=== PATIENT | male | born 1960 | race Caucasian/White ===

== ENCOUNTER → 2016-08-27 | Outpatient (CLI) | payer OTHER ==
[~2016-08-27] MED LIST: CYMB30CA PO; EXCETAB2 PO; GLUCTAB6; MOTR200T PO; ROSU5 PO; SOMA350T PO; TAB-TAB PO; TRAM50TA PO
[2016-08-27 07:43] LABS: ALKALINE PHOSPHATASE 78 U/L (45-117); ALT (GPT) 27 U/L (12-78); ANION GAP 6 MEQ/L (5-15); AST (GOT) 21 U/L (15-37); BICARBONATE 28.1 MEQ/L (21.0-32.0); BLOOD UREA NITROGEN 13 MG/DL (7-18); CHLORIDE 104 MEQ/L (98-107); GLOMERULAR FILTRATION RATE 81 ML/MIN (>89); GLUCOSE,FASTING 99 MG/DL (74-99); HDL CHOLESTEROL 41.6 MG/DL (40.0-60.0); LDL CHOLESTEROL 103 MG/DL (0-99); POTASSIUM 4.3 MEQ/L (3.5-5.1); SODIUM (NA) 138 MEQ/L (136-145); TOTAL BILIRUBIN ADULT 0.6 MG/DL (0.2-1.0)
== END ==
LOC: CLAB 06:52
PROVIDERS: ATTEND Family Medicine
DX: E78.5 Hyperlipidemia, unspecified (principal); Z79.899 Other long term (current) drug therapy
CPT/HCPCS: 36415; 80053; 80061

== ENCOUNTER → 2016-09-27 | Outpatient (CLI) | payer OTHER ==
[2016-09-27 09:33] LABS: AUTOMATED NEUTROPHIL # 3.4 TH/MM3 (1.8-7.7); BASOPHIL # 0.1 TH/MM3 (0-0.2); BASOPHIL % 0.8 % (0.0-2.0); EOSINOPHIL # 0.3 TH/MM3 (0-0.4); EOSINOPHIL % 4.3 % (0.0-4.0); HEMO FLAGS DIFF FINAL; LYMPH % 34.8 % (9.0-44.0); LYMPHOCYTE # 2.4 TH/MM3 (1.0-4.8); MEAN CELL VOLUME 87.5 FL (80.0-100.0); MEAN CORPUSCULAR HEMOGLOBIN 29.5 PG (27.0-34.0); MEAN CORPUSCULAR HGB CONC 33.7 % (32.0-36.0); MONO % 9.6 % (0.0-8.0); NEUT % 50.5 % (16.0-70.0); PLATELET COUNT 258 TH/MM3 (150-450); RED BLOOD COUNT 5.03 MIL/MM3 (4.50-5.90); RED CELL DISTRIBUTION WIDTH 13.5 % (11.6-17.2); WHITE BLOOD COUNT 6.8 TH/MM3 (4.0-11.0)
== END ==
LOC: CLAB 09:05
PROVIDERS: ATTEND Nurse Practitioner Family
DX: K92.1 Melena (principal)
CPT/HCPCS: 36415; 85025

== ENCOUNTER → 2016-11-22 | Day surgery (SDC) | payer OTHER ==
[~2016-11-22] MED LIST changes: +LACTATED RINGER'S 1000 ML INJ 1,000 ML ONE; +PROPOFOL 500 MG/50 ML BTL IV ONE
--- NOTE | 2016-11-22 14:07 | GIPROC ---
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 He takes excedrin and ibuprofen. PROCEDURE PERFORMED: EGD w/ biopsy MEDICATIONS: Per Anesthesia. TOPICAL ANESTHETIC: None CONSENT: The patient understands the risks and benefits of the procedure and understands that these risks include, but are not limited to: sedation, allergic reaction, infection, perforation and/or bleeding. Alternative means of evaluation and treatment include, among others: physical exam, x-rays, and/or surgical intervention. The patient elects to proceed with this endoscopic procedure. medical equipment was checked for proper function. Hand hygiene and appropriate measures for infection prevention was taken. After the risks, benefits and alternatives of the procedure were thoroughly explained, Informed consent was verified, confirmed and timeout was successfully executed by the treatment team. The patient was anesthetized with topical anesthesia and the EC-3490Li ([id number]) endoscope was introduced through the mouth and advanced to the 2nd portion of the duodenum . Retroflexion was performed The gastroscope was then slowly withdrawn and removed. A proximal esophageal inet patch was noted.. The Z-line appeared normal at the GE junction at 46cm from the incisors. Antral erosions were noted; biopsies were taken to check for H.pylori infection. The pylorus and duodenal bulb appeared normal. Multiple shallow ulcers were noted in the duodenal sweep; biopsies were taken. ADVERSE EVENTS: There were no complications. IMPRESSIONS: Antral erosions; duodenal ulcers RECOMMENDATIONS: Resume prior diet/medications. Begin ranitidine. 150mg, by mouth, twice/day. PATIENT CONDITION: stable DISPOSITION: Home REPEAT EXAM: Mao Mccracken MD eSigned: Mao Mccracken MD 11/22/2016 2:06 PM cc: Peg Glaser M.D. PATIENT NAME: Ab Nugent MR#: [id number]
--- NOTE | 2016-11-22 14:13 | GIPROC ---
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 PROCEDURE PERFORMED: Colonoscopy with biopsy MEDICATIONS: Per Anesthesia. PREP QUALITY: excellent ESTIMATED BLOOD LOSS: None CONSENT: The patient understands the risks and benefits of the procedure and understands that these risks include, but are not limited to: sedation, allergic reaction, infection, perforation and/or bleeding. Alternative means of evaluation and treatment include, among others: physical exam, x-rays, and/or surgical intervention. The patient elects to proceed with this endoscopic procedure. medical equipment was checked for proper function. Hand hygiene and appropriate measures for infection prevention was taken. After the risks, benefits and alternatives of the procedure were thoroughly explained, Informed consent was verified, confirmed and timeout was successfully executed by the treatment team. A digital exam was perfommed; no lesions were noted; the prostate was not enlarged. The EC-[id number] ([id number]) endoscope was introduced through the anus and advanced to the cecum, which was identified by both the appendix and ileocecal valve. The instrument was then slowly withdrawn as the colon was fully examined. Two 2mm proximal transverse colon polyps were removed with cold biopsy forceps. Mild sigmoid diverticulosis was noted. Retroflexion was performed The scope was then completely withdrawn from the patient and the procedure terminated. ADVERSE EVENTS: There were no complications. IMPRESSIONS: Two transverse colon polyps; removed with biopsy forceps. Mild sigmoid diverticulosis. RECOMMENDATIONS: 1. Await biopsy results. Biopsy results will not be ready for 7-10 days. If you don't hear from us in two weeks, call our office for results. 2. High fiber diet RECALL: Repeat colonoscopy in 3, 5 or 10 years, depending on polyp histology. Mao Mccracken MD eSigned: Mao Mccracken MD 11/22/2016 2:12 PM cc: Peg Glaser M.D.
== END | disposition home or self-care (01) ==
LOC: ESDC 11:52
DX: K92.1 Melena (principal); D12.3 Benign neoplasm of transverse colon; K57.90 Diverticulosis of intestine, part unspecified, without perforation or abscess without bleeding; K25.9 Gastric ulcer, unspecified as acute or chronic, without hemorrhage or perforation; K26.9 Duodenal ulcer, unspecified as acute or chronic, without hemorrhage or perforation
CPT/HCPCS: 00740; 00810; 43239; 45380; 88305; 88312; J3010; J7120

== ENCOUNTER → 2017-08-21 | Outpatient (CLI) | payer OTHER ==
[~2017-08-21] MED LIST changes: -LACTATED RINGER'S 1000 ML INJ 1,000 ML ONE; -PROPOFOL 500 MG/50 ML BTL IV ONE
[2017-08-21 07:43] LABS: ALKALINE PHOSPHATASE 66 U/L (45-117); HDL CHOLESTEROL 38.7 MG/DL (40.0-60.0); TOTAL BILIRUBIN ADULT 0.3 MG/DL (0.2-1.0); TOTAL PROTEIN 6.9 GM/DL (6.4-8.2)
[2017-08-21 07:45] LABS: ALBUMIN 3.5 GM/DL (3.4-5.0); ALT (GPT) 31 U/L (12-78); AST (GOT) 23 U/L (15-37); BICARBONATE 26.5 MEQ/L (21.0-32.0); BLOOD UREA NITROGEN 15 MG/DL (7-18); CALCIUM 8.7 MG/DL (8.5-10.1); CHLORIDE 108 MEQ/L (98-107); CHOLESTEROL 147 MG/DL (120-200); CHOLESTEROL/ HDL RATIO 3.79 RATIO; CREATININE 0.95 MG/DL (0.60-1.30); GLOMERULAR FILTRATION RATE 82 ML/MIN (>89); GLUCOSE,FASTING 99 MG/DL (74-99); LDL CHOLESTEROL 84 MG/DL (0-99); SODIUM (NA) 141 MEQ/L (136-145); TRIGLYCERIDES 122 MG/DL (42-150)
== END ==
LOC: CLAB 06:49
PROVIDERS: ATTEND Family Medicine
DX: Z86.73 Personal history of transient ischemic attack (TIA), and cerebral infarction without residual deficits (principal)
CPT/HCPCS: 36415; 80053; 80061